=== PATIENT | male | born 1960 | race Asian ===

== ENCOUNTER 2017-05-15 11:51 | Inpatient (IN) | payer MEDICAID, MEDICARE ==
[~2017-05-15] VITALS: Ht 172.7 cm; Wt 66.7 kg
[~2017-05-15 11:51] MED LIST: METF500T4 PO
--- NOTE | 2017-05-15 11:58 | NUR ---
PRESENTS SELF TO ED FOR PSYCHE ADMISSION DT SEVERE ANXIETY. PER PATIENT HE WAS ADVISED TO COME TO ED BY PMD LYLA,. NO EVANS NOR HI. VSS
--- NOTE | 2017-05-15 12:12 | NUR ---
MD FRY AT
--- NOTE | 2017-05-15 12:15 | NUR ---
CALLED DR QUINTANA OFFICE, WAS PAGED.
[2017-05-15] MEDS ORDERED: IV NS 0.9% 1,000 ML BAG IV ONE (12:30)
[2017-05-15 12:35] LABS: BASOPHILS # (AUTO) 0.1 /CMM (0.0-0.2); EOSINOPHILS % (AUTO) 0.6 % (0.0-6.0); HEMATOCRIT 47 % (39-51); HEMOGLOBIN 15.1 g/dL (13.5-17.5); LYMPHOCYTES # (AUTO) 1.3 /CMM (0.8-4.8); LYMPHOCYTES % (AUTO) 19.3 % (20.0-44.0); MEAN CORPUSCULAR HEMOGLOBIN 28 PG (26.0-33.0); MEAN CORPUSCULAR HGB CONC 32 g/dl (31.0-36.0); MEAN CORPUSCULAR VOLUME 87 fL (80-96); MONOCYTES # (AUTO) 0.3 /CMM (0.1-1.30); MONOCYTES % (AUTO) 5.1 % (2.0-12.0); PLATELET COUNT (AUTO) 288 /CMM (150-450); RDW COEFFICIENT OF VARIATION 13.3 (11.5-15.0); RED BLOOD CELL COUNT(AUTO) 5.45 MIL/uL (4.5-6.0); WHITE BLOOD COUNT (AUTO) 6.7 K/uL (4.3-11.0)
[2017-05-15 12:48] LABS: CALCIUM, SERUM 8.7 mg/dL (8.5-10.1); CARBON DIOXIDE 21 mmol/L (21-32); CHLORIDE 102 mmol/L (98-107); CREATININE 1.2 mg/dL (0.6-1.3); GLUCOSE 263 mg/dL (74-106); POTASSIUM 4.2 mmol/L (3.5-5.1); SODIUM SERUM 135 mmol/L (136-145); UREA NITROGEN, BLOOD 22 mg/dL (7-18)
[2017-05-15 12:49] LABS: ALCOHOL, BLOOD < 3 mg/dL (0-0)
[2017-05-15 12:56] LABS: TROPONIN I < 0.017 ng/mL (0.00-0.056)
[2017-05-15 12:58] LABS: ABG BASE EXCESS -5.9 mmol/L; ABG OXYGEN SATURATION 53.7 % (92.0-98.5); ABG PCO2 42.3 mmHg (35.0-45.0); ABG PH 7.298 (7.350-7.450); ABG PO2 30.6 mmHg (75.0-100.0); COHb 2.7 % (0.5-1.5); MetHb 0.5 % (0.0-1.5); VENT MODE, BG room air
[2017-05-15] MEDS ORDERED: INSULIN ASPART HUMALOG/NOVOLOG 100 UNIT/ML CARTRIDGE SQ STA (13:12)
--- NOTE | 2017-05-15 13:15 | NUR ---
CALLED DR QUINTANA OFFICE, WAS REPAGED.
--- NOTE | 2017-05-15 13:20 | NUR ---
URINE SAMPLE COLLECTED SENT TO LAB
[2017-05-15] MEDS ORDERED: SIMV5TAB6 PO (13:30)
[2017-05-15] MEDS ORDERED: TOPI25TA8 PO (13:30)
[2017-05-15] MEDS ORDERED: BENZ1TAB7 PO (13:30)
[2017-05-15] MEDS ORDERED: ARIP15TA2 PO (13:30)
[2017-05-15] MEDS ORDERED: LISI2.5T2 PO (13:30)
[2017-05-15 13:32] LABS: APPEARANCE,URINE Clear (CLEAR); BILIRUBIN,URINE Negative (NEGATIVE); BLOOD, URINE Negative Ery/uL (NEGATIVE); COLOR,URINE Light yellow (YELLOW); KETONES,URINE 15 (NEGATIVE); LEUKOCYTE ESTERASE ,URINE Negative (NEGATIVE); NITRITE, URINE Negative (NEGATIVE); PROTEIN,URINE Negative (NEGATIVE); UGLUCOSE 250 MG/DL mg/dL (NEGATIVE); UROBILINOGEN,URINE 0.2 EU/dL (0.2)
[2017-05-15 13:35] LABS: BACTERIA,URINE Rare /HPF (None Seen); RBC,URINE 0-2 /HPF (0-2); SQUAMOUS EPITHELIAL CELL,UR Rare /HPF (None Seen); WBC,URINE 0-2 /HPF (0-3)
[2017-05-15] MEDS ORDERED: THIO1CAP PO (13:37)
[2017-05-15] MEDS ORDERED: GLIP5TAB13 PO (13:37)
--- NOTE | 2017-05-15 13:53 | NUR ---
PATIENT TRANSPORTED TO [facility] 3. VSS
--- NOTE | 2017-05-15 14:00 | NUR ---
AM RN NOTE Received patient from ER as accompanied by ER staff. Pt A/O X3 verbally responsive. Denies any pain or discomfort at this time. Pt refused to answer most of the questions at time of admission. Called Dr. Ghanshyam chandler with new orders obtained noted and carried out. IV site on LAC #20 intact. Will continue to monitor.
--- NOTE | 2017-05-15 14:20 | NUR ---
AM RN NOTE Pt stating to staff "I want to leave AMA. I have to go to work. I was just discharged from [facility] yesterday because I was on hold". CN ([place]) made aware and she spoke with patient. Patient insisting to leave AMA. Called Dr. Ghanshyam chandler with new order for Psych eval. Fashion Consultant made aware by JODY. Will continue to monitor patient closely.
[2017-05-15] MEDS ORDERED: *INSULIN REGULAR(HUMULIN R)HUM 100 UNIT/ML VIAL SQ PRN (15:30)
[2017-05-15] MEDS ORDERED: DEXTROSE 50%-WATER 50 ML DISP.SYRIN IV PRN (15:30)
[2017-05-15] MEDS ORDERED: INSULIN REGULAR, HUMAN 100 UNIT/ML 3 ML VIAL SQ PRN (15:30)
[2017-05-15] MEDS ORDERED: IV NS 0.9% 1,000 ML BAG IV PRN (15:30)
[2017-05-15] MEDS ORDERED: LISINOPRIL (5MG) 5 MG TABLET PO SCH (16:30)
[2017-05-15] MEDS ORDERED: IV NS 0.9% 1,000 ML IV PRN (16:30)
[2017-05-15] MEDS ORDERED: METFORMIN 500 MG TABLET PO SCH (17:00)
--- NOTE | 2017-05-15 17:00 | NUR ---
AM RN NOTE Patient awake, sitting with Art (Crisis team) for evaluation in his room.
[2017-05-15 17:24] VITALS: BP 126/85
--- NOTE | 2017-05-15 17:26 | NUR ---
AM RN NOTE Patient compliant with accucheck and PO meds but refused IV fluids and Insulin stated "I don't need it". Addendum: 05/15/17 at 1728 by DALIA SNOW RN BS 159MG/DL. EXPLAINED BENEFITS BUT STILL REFUSED.
[2017-05-15] MEDS ORDERED: THIOTHIXENE 5 MG CAPSULE PO SCH ×2 (17:30→19:00)
[2017-05-15] MEDS ORDERED: BLOOD SUGAR DIAGNOSTIC 1 EACH STRIP VI SCH (17:30)
--- NOTE | 2017-05-15 17:30 | NUR ---
AM RN NOTE Patient awake, A/O X3 verbally responsive. Denies any pain or discomfort at this time. Patient seen and assessed by Art (Crisis team) and not holdable. Art attempted to call Dr. Ghanshyam chandler but unable to get hold of him.
--- NOTE | 2017-05-15 17:35 | NUR ---
AM RN NOTE Patient A/O X3 wants to leave AMA. Explained the risks of leaving against medical advice but patient insisting to leave. Pt signed AMA form and belongings list signed and endorsed. HL and ID band removed. Patient left AMA at this time with all his belongings. Denies any pain at this time. Left msg to Dr. Ghanshyam chandler by JODY Duncan). Addendum: 05/15/17 at 1750 by DALIA SNOW RN ADD TO ABOVE ORDER PATIENT REFUSED TO TAKE ANY DISCHARGE PAPERS WITH HIM.
[2017-05-15] MEDS ORDERED: BENZTROPINE MESYLATE (1 MG) 1 MG TABLET PO SCH (18:00)
[2017-05-15] MEDS ORDERED: TOPIRAMATE 25 MG TABLET PO SCH (18:00)
[2017-05-15] MEDS ORDERED: INSULIN DETEMIR 100 UNIT/ML CARTRIDGE SQ SCH (21:00)
[2017-05-15] MEDS ORDERED: ATORVASTATIN 10 MG TABLET PO SCH (22:00)
[2017-05-16] MEDS ORDERED: ASPIRIN 81 MG TAB.CHEW PO SCH (09:00)
== END 2017-05-15 17:40 | disposition left against medical advice (07) | DRG 639 ==
LOC: ER 11:56 → TELE 13:50
PROVIDERS: ADMIT Internal Medicine; ATTEND Internal Medicine
DX: E11.65 Type 2 diabetes mellitus with hyperglycemia (principal); F20.9 Schizophrenia, unspecified; Z73.6 Limitation of activities due to disability; F41.9 Anxiety disorder, unspecified; R82.4 Acetonuria
CPT/HCPCS: 36415; 36600; 71010-TC; 80048-TC; 80305; 81000-TC; 82962-TC; 84484-TC; 85025-TC; 87081-TC; A4606; G0480; J1815; J7030; Z7610

== ENCOUNTER 2017-09-14 00:13 | Emergency (ER) | payer MEDICARE ==
[~2017-09-14] VITALS: Ht 177.8 cm; Wt 64.2 kg
[~2017-09-14 00:13] MED LIST changes: +ARIP15TA2 PO; +BENZ1TAB7 PO; +GLIP5TAB13 PO; +LISI2.5T2 PO; +SIMV5TAB6 PO; +THIO1CAP PO; +TOPI25TA8 PO
[2017-09-14 00:25] VITALS: BP 144/84
--- NOTE | 2017-09-14 00:47 | NUR ---
patient refused iv insertion and refused ns bolus. Dr Robles notified.
[2017-09-14 00:58] LABS: BASOPHILS % (AUTO) 0.4 % (0.0-2.0); EOSINOPHILS # (AUTO) 0.2 /CMM (0.0-0.7); EOSINOPHILS % (AUTO) 3.2 % (0.0-6.0); HEMATOCRIT 41 % (39-51); HEMOGLOBIN 13.1 g/dL (13.5-17.5); LYMPHOCYTES # (AUTO) 1.9 /CMM (0.8-4.8); LYMPHOCYTES % (AUTO) 28.2 % (20.0-44.0); MEAN CORPUSCULAR HEMOGLOBIN 28 PG (26.0-33.0); MEAN CORPUSCULAR HGB CONC 32 g/dl (31.0-36.0); MEAN CORPUSCULAR VOLUME 88 fL (80-96); MONOCYTES # (AUTO) 0.4 /CMM (0.1-1.30); MONOCYTES % (AUTO) 5.7 % (2.0-12.0); NEUTROPHILS # (AUTO) 4.3 /CMM (1.8-8.9); NEUTROPHILS % (AUTO) 62.5 % (43.0-81.0); PLATELET COUNT (AUTO) 254 /CMM (150-450); RDW COEFFICIENT OF VARIATION 13.3 (11.5-15.0); RED BLOOD CELL COUNT(AUTO) 4.66 MIL/uL (4.5-6.0); WHITE BLOOD COUNT (AUTO) 6.8 K/uL (4.3-11.0)
[2017-09-14] MEDS ORDERED: IV NS 0.9% 1,000 ML BAG IV ONE (01:00)
[2017-09-14 01:32] LABS: APPEARANCE,URINE CLEAR (CLEAR); BILIRUBIN,URINE NEGATIVE (NEGATIVE); BLOOD, URINE NEGATIVE Ery/uL (NEGATIVE); KETONES,URINE NEGATIVE (NEGATIVE); LEUKOCYTE ESTERASE ,URINE NEGATIVE (NEGATIVE); NITRITE, URINE NEGATIVE (NEGATIVE); PROTEIN,URINE NEGATIVE (NEGATIVE); UGLUCOSE 3+ mg/dL (NEGATIVE); UROBILINOGEN,URINE 0.2 EU/dL (0.2)
[2017-09-14 01:34] LABS: ALANINE AMINOTRANSFERASE 27 U/L (12-78); ALBUMIN 3.6 g/dL (3.4-5.0); ALCOHOL, BLOOD < 3 mg/dL (0-0); ALKALINE PHOSPHATASE 68 U/L (46-116); ASPARTATE AMINOTRANSFERASE 15 U/L (15-37); BILIRUBIN,DIRECT 0.1 mg/dL (0.0-0.2); BILIRUBIN,TOTAL 0.3 mg/dL (0.2-1.0); CALCIUM, SERUM 9.1 mg/dL (8.5-10.1); CARBON DIOXIDE 25 mmol/L (21-32); CHLORIDE 101 mmol/L (98-107); CREATININE 1.1 mg/dL (0.6-1.3); POTASSIUM 3.5 mmol/L (3.5-5.1); SODIUM SERUM 135 mmol/L (136-145); TOTAL PROTEIN, SERUM 7.2 g/dL (6.4-8.2); UREA NITROGEN, BLOOD 19 mg/dL (7-18)
[2017-09-14 01:38] LABS: COLOR,URINE STRAW (YELLOW)
[2017-09-14 01:40] LABS: BACTERIA,URINE None seen /HPF (None Seen); RBC,URINE 0-2 /HPF (0-2); SQUAMOUS EPITHELIAL CELL,UR Few /HPF (None Seen); WBC,URINE 0-2 /HPF (0-3)
[2017-09-14 01:48] LABS: GLUCOSE 379 mg/dL (74-106); SALICYLATE 2.4 mg/dL (2.8-20.0)
[2017-09-14 01:49] LABS: ACETAMINOPHEN 0 ug/ml (10-30)
[2017-09-14] MEDS ORDERED: INSULIN REGULAR, HUMAN 100 UNIT/ML 10 ML VIAL IV ONE (02:00)
[2017-09-14] MEDS ORDERED: INSULIN REGULAR, HUMAN 100 UNIT/ML 10 ML VIAL ONE (02:00)
--- NOTE | 2017-09-14 02:03 | NUR ---
patient still refused iv insertion at this time; teachings done, encouragement done, patient still refused. Dr Robles notified, and she said okay to give insulin subq.
== END 2017-09-14 06:45 | disposition home or self-care (01) ==
LOC: ER 00:17
DX: F32.9 Major depressive disorder, single episode, unspecified (principal); F41.9 Anxiety disorder, unspecified; E11.9 Type 2 diabetes mellitus without complications; I10 Essential (primary) hypertension; F20.9 Schizophrenia, unspecified; F17.200 Nicotine dependence, unspecified, uncomplicated; Z59.0 Homelessness
CPT/HCPCS: 36415; 80048; 80076; 80305; 80329; 81001; 82962; 85025; 96372; 99284; A4606; G0480 ×2; J1815; 81000-TC; J7030; Z7610

== ENCOUNTER 2017-09-23 04:04 | Emergency (ER) | payer MEDICARE ==
[~2017-09-23] VITALS: Ht 167.6 cm; Wt 63.5 kg
[2017-09-23 04:04] VITALS: BP 132/71
[~2017-09-23 04:04] MED LIST changes: -ARIP15TA2 PO; +ARIP15TA3 PO; +TOPI25TA PO; -TOPI25TA8 PO
== END 2017-09-23 04:39 | disposition home or self-care (01) ==
LOC: ER 04:06
DX: Z59.0 Homelessness (principal); F41.9 Anxiety disorder, unspecified; F20.9 Schizophrenia, unspecified; F17.200 Nicotine dependence, unspecified, uncomplicated
CPT/HCPCS: 99281; A4606; Z7502; Z7610

== ENCOUNTER 2017-09-28 18:32 | Emergency (ER) | payer MEDICARE ==
[~2017-09-28] VITALS: Ht 172.7 cm; Wt 83.9 kg
--- NOTE | 2017-09-28 18:48 | NUR ---
PT AMBULATORY TO ER BED 12. REQUESTING PSYCH MEDS REFILL. PT DENIES ANY DISCOMFORT.STABLE VITALS. AWAITING MD MOORE.
[2017-09-28 19:27] LABS: APPEARANCE,URINE Clear (CLEAR); BILIRUBIN,URINE Negative (NEGATIVE); BLOOD, URINE Negative Ery/uL (NEGATIVE); COLOR,URINE Yellow (YELLOW); KETONES,URINE Negative (NEGATIVE); LEUKOCYTE ESTERASE ,URINE Negative (NEGATIVE); NITRITE, URINE Negative (NEGATIVE); PROTEIN,URINE Negative (NEGATIVE); UGLUCOSE 500 MG/DL mg/dL (NEGATIVE); UROBILINOGEN,URINE 0.2 EU/dL (0.2)
[2017-09-28] MEDS ORDERED: IV NS 0.9% 1,000 ML BAG IV ONE (19:30)
--- NOTE | 2017-09-28 19:32 | NUR ---
Patient does not wish to proceed with medical care recommended by Dr. Zacarias. Patient given information related to possible complications, up to and including , which could occur as a result of leaving the hospital at this time. Patient verbalizes understanding of risks involved due to leaving against medical advice. Patient has signed AMA form.
[2017-09-28 19:59] VITALS: BP 138/101
== END 2017-09-28 20:01 | disposition left against medical advice (07) ==
LOC: ER 18:34
DX: F29 Unspecified psychosis not due to a substance or known physiological condition (principal); E11.65 Type 2 diabetes mellitus with hyperglycemia; F25.9 Schizoaffective disorder, unspecified; F41.9 Anxiety disorder, unspecified; F17.200 Nicotine dependence, unspecified, uncomplicated; Z79.84 Long term (current) use of oral hypoglycemic drugs
CPT/HCPCS: 81000-TC; 82962-TC; A4606; Z7610

== ENCOUNTER 2017-10-14 01:41 | Emergency (ER) | payer MEDICARE | END 2017-10-14 02:03 | disposition left against medical advice (07) | LOC: ER 01:42 | DX: Z53.21 Procedure and treatment not carried out due to patient leaving prior to being seen by health care provider (principal) ==